=== PATIENT | male | born 1990 | race Caucasian/White ===

== ENCOUNTER 2022-01-11 21:37 | Emergency (ER) | payer OTHER ==
[2022-01-11] MEDS ORDERED: predniSONE 20 MG TAB ONE (23:08)
== END 2022-01-11 23:10 | disposition home or self-care (01) ==
LOC: MADERS 21:37
DX: L50.0 Allergic urticaria (principal); T43.625A Adverse effect of amphetamines, initial encounter
CPT/HCPCS: 99282; J7512

== ENCOUNTER 2022-07-29 17:48 | Emergency (ER) | payer BC, SELFPAY | END 2022-07-29 19:15 | disposition home or self-care (01) | LOC: MADERS 17:48 | DX: Z77.21 Contact with and (suspected) exposure to potentially hazardous body fluids (principal); F17.290 Nicotine dependence, other tobacco product, uncomplicated | CPT/HCPCS: 99283 ==